=== PATIENT | female | born 1965 | race Caucasian/White ===

== ENCOUNTER 2018-09-06 08:21 | Emergency (ER) | payer BC, OTHER ==
[2018-09-06] MEDS ORDERED: IPRATROPIUM BROM 0.5MG/2.5ML ONE (09:28)
[2018-09-06] MEDS ORDERED: ALBUTEROL 2.5 MG/3 ML NEB SOL ONE (09:28)
--- NOTE | 2018-09-06 10:36 | RAD REPORT ---
EXAM DESCRIPTION: RAD - Chest Pa And Lat (2 Views) - 09/06/2018 9:52 am CLINICAL HISTORY: Cough, shortness of breath, congestion COMPARISON: None. TECHNIQUE: PA and lateral views of the chest were obtained. FINDINGS: The lungs are clear of a focal lung parenchymal process. No failure or volume overload. H eart size is normal and central vasculature is within normal limits. No pleural effusion or pneumoth orax seen. No acute bony finding noted. No aortic abnormality. Patient is a mildly prominent inter stitial pattern believed to be baseline. IMPRESSION: No focal consolidation, mass or failure finding. Mild prominence of the interstitial pattern favored to be baseline.
--- NOTE | 2018-09-06 10:51 | ER ---
Nurse's Notes [facility] Name: Moni Su Age: 53 yrs Sex: Female : 1965 Arrival Date: 09/06/2018 Time: 08:25 Bed 19 Private MD: Diagnosis: Acute bronchitis Presentation: 09/06 08:35 Presenting complaint: Patient states: "I went to the doctor on Sunday and was aa5 diagnosed with an upper respiratory infection and laryngitis and they gave me prednisone and cefuroxime but on Sunday I wasn't getting better and I called the doctor and they gave me a z-pack but now it's Sunday and I am not better". Pt c/o nasal congestion and cough. 08:35 Transition of care: patient was not received from another setting of care. Onset of aa5 symptoms was August 2018. Risk Assessment: Do you want to hurt yourself or someone else? Patient reports no desire to harm self or others. Initial Sepsis Screen: Does the patient meet any 2 criteria? No. Patient's initial sepsis screen is negative. Does the patient have a suspected source of infection? No. Patient's initial sepsis screen is negative. Care prior to arrival: None. 08:35 Acuity: KONRAD 3 aa5 08:35 Method Of Arrival: Ambulatory aa5 Historical: - Allergies: 08:35 No Known Allergies; aa5 - Home Meds: 08:35 Advair Diskus Inhl [Active]; Singulair Oral [Active]; Flonase Nasal [Active]; z-pack aa5 [Active]; Cefuroxime Oral [Active]; benzonatate oral oral [Active]; Prednisone Oral [Active]; - PMHx: 08:35 Asthma; aa5 - PSHx: 08:35 Cholecystectomy; aa5 - Immunization history:: Flu vaccine is up to date. - Social history:: Smoking status: Patient/guardian denies using tobacco. - Ebola Screening: : No symptoms or risks identified at this time. Screenin:40 Abuse screen: Denies threats or abuse. Nutritional screening: No deficits noted. aa5 Tuberculosis screening: No symptoms or risk factors identified. Fall Risk None identified. Assessment: 08:40 General: Appears uncomfortable, Behavior is calm, cooperative. Pain: Complains of pain aa5 in pt reports body aches. Neuro: Level of Consciousness is awake, alert, obeys commands, Oriented to person, place, time, situation. Cardiovascular: Heart tones S1 S2 present Capillary refill < 3 seconds is brisk in bilateral fingers Patient's skin is warm and dry. Respiratory: Airway is patent Respiratory effort is even, unlabored, Respiratory pattern is regular, symmetrical, Breath sounds are clear bilaterally. Denies cough. GI: No signs and/or symptoms were reported involving the gastrointestinal system. : No signs and/or symptoms were reported regarding the genitourinary system. EENT: Reports being diagnosed with laryngitis . Derm: Skin is pink, warm \\T\\ dry. Musculoskeletal: Range of motion: intact in all extremities. 10:30 Reassessment: Patient is alert, oriented x 3, equal unlabored respirations, skin aa5 warm/dry/pink. Respiratory: Breath sounds are clear bilaterally. 11:10 Reassessment: Patient is alert, oriented x 3, equal unlabored respirations, skin aa5 warm/dry/pink. Vital Signs: 08:37 BP 153 / 107; Pulse 84; Resp 18 S; Temp 98.5(O); Pulse Ox 96% on R/A; Weight 108.86 kg aa5 (R); Height 5 ft. 3 in. (160.02 cm) (R); 09:20 BP 156 / 97; Pulse 81; Resp 16 S; Pulse Ox 99% on Nebulizer Mask; aa5 10:49 BP 126 / 90; Pulse 84; Resp 16 S; Pulse Ox 97% on R/A; aa5 08:37 Body Mass Index 42.51 (108.86 kg, 160.02 cm) aa5 ED Course: 08:25 Patient arrived in ED. as 08:25 Triage completed. aa5 08:34 Jamarcus Knox MD is Attending Physician. gs 08:35 Arm band placed on Patient placed in an exam room, on a stretcher. aa5 08:35 Patient has correct armband on for positive identification. Bed in low position. Call aa5 light in reach. Side rails up X 1. 08:42 Ellen Tomlinson, RN is Primary Nurse. aa5 09:52 X-ray completed. Patient tolerated procedure well. Patient moved back from radiology. sw 09:54 Chest Pa And Lat (2 Views) XRAY In Process Unspecified. EDMS 11:15 No provider procedures requiring assistance completed. Patient did not have IV access aa5 during this emergency room visit. Administered Medications: 09:18 Drug: Albuterol 2.5 mg Route: Inhalation; aa5 09:18 Drug: AtroVENT Aerosol 0.5 mg Route: Inhalation; aa5 Outcome: 10:50 Discharge ordered by . gs 11:15 Discharged to home ambulatory. aa5 11:15 Condition: stable 11:15 Discharge instructions given to patient, Instructed on discharge instructions, follow up and referral plans. medication usage, Demonstrated understanding of instructions, follow-up care, medications, Prescriptions given X 2. 11:16 Patient left the ED. aa5 Signatures: Dispatcher [employer] EDMS Kasandra Gonzalez Audri, RN RN aa5 Silvia Thakkar Gregory, MD MD Corrections: (The following items were deleted from the chart) 10:27 08:44 Triage completed. aa5 aa5 10:51 09:20 BP 156 / 97; Pulse 81bpm; Resp 16bpm; Spontaneous; Pulse Ox 97%; aa5 aa5 11:19 08:40 Respiratory: Airway is patent Respiratory effort is even, unlabored, Respiratory aa5 pattern is regular, symmetrical, Denies cough, aa5
--- NOTE | 2018-09-06 10:51 | EDPHYS ---
Physician Documentation [facility] Name: Moni Su Age: 53 yrs Sex: Female : 1965 Arrival Date: 09/06/2018 Time: 08:25 Bed 19 Private MD: ED Physician Jamarcus Knox HPI: 09/06 10:48 This 53 yrs old Female presents to ER via Ambulatory with complaints of gs Cough, Congestion. 10:48 The patient or guardian reports cough, that is intermittent. Onset: The gs symptoms/episode began/occurred 1 week(s) ago. Severity of symptoms: At their worst the symptoms were severe, in the emergency department the symptoms are unchanged. Modifying factors: the symptoms are aggravated by cold weather, smoke. Associated signs and symptoms: Pertinent negatives: fever. The patient has experienced similar episodes in the past, a few times. The patient has been recently seen by a physician: the patient's primary care provider. Historical: - Allergies: 08:35 No Known Allergies; aa5 - Home Meds: 08:35 Advair Diskus Inhl [Active]; Singulair Oral [Active]; Flonase Nasal [Active]; z-pack aa5 [Active]; Cefuroxime Oral [Active]; benzonatate oral oral [Active]; Prednisone Oral [Active]; - PMHx: 08:35 Asthma; aa5 - PSHx: 08:35 Cholecystectomy; aa5 - Immunization history:: Flu vaccine is up to date. - Social history:: Smoking status: Patient/guardian denies using tobacco. - Ebola Screening: : No symptoms or risks identified at this time. ROS: 10:48 All other systems are negative. gs Exam: 10:48 Head/Face: Normocephalic, atraumatic. Eyes: Pupils equal round and reactive to light, gs extra-ocular motions intact. Lids and lashes normal. Conjunctiva and sclera are non-icteric and not injected. Cornea within normal limits. Periorbital areas with no swelling, redness, or edema. ENT: Nares patent. No nasal discharge, no septal abnormalities noted. Tympanic membranes are normal and external auditory canals are clear. Oropharynx with no redness, swelling, or masses, exudates, or evidence of obstruction, uvula midline. Mucous membranes moist. Neck: Trachea midline, no thyromegaly or masses palpated, and no cervical lymphadenopathy. Supple, full range of motion without nuchal rigidity, or vertebral point tenderness. No Meningismus. Chest/axilla: Normal chest wall appearance and motion. Nontender with no deformity. No lesions are appreciated. Cardiovascular: Regular rate and rhythm with a normal S1 and S2. No gallops, murmurs, or rubs. Normal PMI, no JVD. No pulse deficits. Abdomen/GI: Soft, non-tender, with normal bowel sounds. No distension or tympany. No guarding or rebound. No evidence of tenderness throughout. Back: No spinal tenderness. No costovertebral tenderness. Full range of motion. Skin: Warm, dry with normal turgor. Normal color with no rashes, no lesions, and no evidence of cellulitis. MS/ Extremity: Pulses equal, no cyanosis. Neurovascular intact. Full, normal range of motion. Neuro: Awake and alert, GCS 15, oriented to person, place, time, and situation. Cranial nerves II-XII grossly intact. Motor strength 5/5 in all extremities. Sensory grossly intact. Cerebellar exam normal. Normal gait. 10:48 Constitutional: The patient appears alert, awake. 10:48 Respiratory: the patient does not display signs of respiratory distress, Respirations: normal, symetrical, no use of accessory muscles, Breath sounds: rhonchi, that are mild, are scattered. Vital Signs: 08:37 BP 153 / 107; Pulse 84; Resp 18 S; Temp 98.5(O); Pulse Ox 96% on R/A; Weight 108.86 kg aa5 (R); Height 5 ft. 3 in. (160.02 cm) (R); 09:20 BP 156 / 97; Pulse 81; Resp 16 S; Pulse Ox 99% on Nebulizer Mask; aa5 10:49 BP 126 / 90; Pulse 84; Resp 16 S; Pulse Ox 97% on R/A; aa5 08:37 Body Mass Index 42.51 (108.86 kg, 160.02 cm) aa5 MDM: 09:06 Patient medically screened. gs 10:48 Differential Diagnosis: Bronchitis Upper Respiratory Infection Pneumonia. Data gs reviewed: vital signs, nurses notes, radiologic studies. Counseling: I had a detailed discussion with the patient and/or guardian regarding: the historical points, exam findings, and any diagnostic results supporting the discharge/admit diagnosis, the presence of at least one elevated blood pressure reading (>120/80) during this emergency department visit, radiology results, the need for outpatient follow up. Response to treatment: the patient's symptoms have markedly improved after treatment, and as a result, I will discharge patient. 10:57 Special discussion: I have referred the patient to see his PCP for further evaluation gs of high blood pressure. 09/06 09:10 Order name: Chest Pa And Lat (2 Views) XRAY; Complete Time: 10:49 gs Administered Medications: 09:18 Drug: Albuterol 2.5 mg Route: Inhalation; aa5 09:18 Drug: AtroVENT Aerosol 0.5 mg Route: Inhalation; aa5 Disposition: 09/06/18 10:50 Discharged to Home. Impression: Acute bronchitis. - Condition is Stable. - Discharge Instructions: Acute Bronchitis, Adult, Managing Your Hypertension. - Prescriptions for codeine- guaifenesin 10-100 mg/5 mL Oral liquid - take 10 milliliter by ORAL route every 6 hours; 150 milliliter. Albuterol Sulfate 90 mcg/actuation - inhale 1-2 puff by INHALATION route every 4-6 hours; 1 Inhaler. - Medication Reconciliation Form, Thank You Letter, Antibiotic Education, Prescription Opioid Use form. - Follow up: Private Physician; When: 2 - 3 days; Reason: Re-evaluation by your physician. Signatures: Dispatcher [employer] Ellen Mancilla RN RN aa5 Jamarcus Knox MD MD Corrections: (The following items were deleted from the chart) 11:16 10:50 09/06/2018 10:50 Discharged to Home. Impression: Acute bronchitis. Condition is aa5 Stable. Forms are Medication Reconciliation Form, Thank You Letter, Antibiotic Education, Prescription Opioid Use. Follow up: Private Physician; When: 2 - 3 days; Reason: Re-evaluation by your physician. gs
[2018-09-06 13:30] VITALS: TEMP 98.5
[2018-09-06 13:33] VITALS: BP 126/90; O2SAT 97
== END 2018-09-06 11:16 | disposition home or self-care (01) ==
LOC: ER 08:21
DX: J20.9 Acute bronchitis, unspecified (principal)
CPT/HCPCS: 71046; 99284